=== PATIENT | male | born 1945 | race African-American/Black ===

== ENCOUNTER 2018-06-17 12:46 | Emergency (ER) | payer OTHER ==
[~2018-06-17] VITALS: Ht 177.8 cm; Wt 74.8 kg
[~2018-06-17 12:46] MED LIST: CALCIUM CHLORIDE 10% 100 MG/ML SYR IVP ONE; EPINEPHrine PFS 0.1 MG/ML SYR IVP ONE; SODIUM BICARBONATE 8.4% PFS 50 MEQ/50 ML SYR IVP ONE
[2018-06-17] MEDS ORDERED: DOPamine 400 MG/D5W PREMIX 250 ML IV ONE (12:47)
--- NOTE | 2018-06-17 13:00 | NUR ---
PT ARRIVED FULL ARREST CPR BEING DONE TRACHED PORT[place] 9 2 AFTER CPR PT RETURNED TO [facility] AD PLACED ON VENT AT 1305 WITH SETTINGS CHARTED BREATH SOUNDS PRESENT BILAT COARSE AFTER A FEW MINUTES OR SO PT WENT IN TO ARREST AGAIN CONTINUED CPR 1331 DR GRANADOS AT BEDSIDE PT
[2018-06-17] MEDS ORDERED: ENOXAPARIN 80 MG/0.8 ML SYR SUBQ ONE (13:06)
[2018-06-17 13:24] VITALS: BP 111/72
[2018-06-17] MEDS ORDERED: ALBUMIN HUMAN 25% 100 ML IV ONE (13:26)
--- NOTE | 2018-06-17 13:37 | NUR ---
PATIENT IS A 72 YO MALE BIB EMS FROM [facility] IN FULL ARREST TO BED 19 Addendum: 06/17/18 at 1338 by [facility] 10 CPR IN PROGRESS AND DR GRANADOS AT [facility] CODE INITIATED. RT AT [facility] TO ASSIST.
--- NOTE | 2018-06-17 13:41 | NUR ---
PATIENT PRONOUNCED BY DR GRANADOS AT 1195 CONTACTED SISTER NGOZI AND SHE IS ON HER WAY.
--- NOTE | 2018-06-17 14:02 | NUR ---
CONTACTED [facility] VIA PHONE AT 1400.
--- NOTE | 2018-06-17 14:17 | NUR ---
CONTACTED PRODUCT DEVELOPMENT WORKER AWAITING CALLBACK.
--- NOTE | 2018-06-17 14:47 | NUR ---
FAMILY AT BEDSIDE ACCEPTED [facility] INFORMATION AND THEN LEFT.
--- NOTE | 2018-06-17 15:47 | NUR ---
SPOKE TO [facility] AND ALL REQUESTED INFORMATION WAS GIVEN, THEY MAY CALL BACK. STILL AWAITING TANYARD WORKER CALL.
--- NOTE | 2018-06-17 15:48 | NUR ---
[facility] CALLED AND RELEASED BODY WILL NOT PERSUE TISSUE DONATION FROM THIS PATIENT.
--- NOTE | 2018-06-17 16:52 | NUR ---
BODY RELEASED BY [employer] AND POST MORTEM CARE DONE PATIENT PLACED IN BODY BAG [facility] CALLED FOR TRANSPORT.
--- NOTE | 2018-06-17 18:06 | NUR ---
POST MORTEM CARE COMPLETED AND [facility] CALLED AND FACE SHEET FAXED TO THEM. REMAINS MOVED TO ROOM 125.
[2018-06-17 19:07] VITALS: BP 0/0
--- NOTE | 2018-06-17 19:09 | NUR ---
[facility] HERE TO SEWER LINE REPAIRER REMAINS TAKEN TO ROOM 125 BY SECURITY, BODY WILL BE PICKED UP. MORTUARY GIVEN FACE SHEET AND FAMILY CONTACT INFORMATION
== END 2018-06-17 13:36 | disposition expired ==
LOC: MED 12:46
DX: I46.9 Cardiac arrest, cause unspecified (principal); E11.9 Type 2 diabetes mellitus without complications; F03.90 Unspecified dementia, unspecified severity, without behavioral disturbance, psychotic disturbance, mood disturbance, and anxiety; I10 Essential (primary) hypertension; I48.91 Unspecified atrial fibrillation; Z95.0 Presence of cardiac pacemaker
CPT/HCPCS: 36556; 36680; 92950; 99291; J0171; J1265; J1650; P9046